=== PATIENT | female | born 1975 | race Caucasian/White ===

== ENCOUNTER 2016-12-05 08:46 | Emergency (ER) | payer OTHER ==
[~2016-12-05] VITALS: Ht 170.2 cm; Wt 90.0 kg
[~2016-12-05 08:46] MED LIST: BUTACAP2 PO; CLON1 PO; PROP10TA6 PO; TOPI100 PO; TOPI200 PO
[2016-12-05 08:53] VITALS: BP 136/82; PULSE 106; TEMP 99.3; O2SAT 98
[2016-12-05 09:01] VITALS: PULSE 99; RESP 18; O2SAT 100
--- NOTE | 2016-12-05 09:59 | PD ---
HPI Chief Complaint: Psychiatric Symptoms Time Seen by Provider: 09:21 Travel History International Travel<30 days: No Contact w/Intl Traveler<30days: No Traveled to known affect area: No History of Present Illness HPI 41-year-old woman presents emergent from complaining of feeling so a nervous breakdown. She went of increased anxiety symptoms, increasing stress, and passive wish. Denies expressed suicidal thoughts at this point. They symptoms of been building for some time. Social stressors. She is a history of bipolar disorder, ADD, and anxiety. She been Doran acted in the past. She smokes marijuana. On any psych meds. No other complaints. History Past Medical History Narrative Medical Bipolar disorder, anxiety, ADD LMP: 10/2016 : 5 Para: 3 Social History Alcohol Use: Yes (WEEKLY, 5-6 DRINKS) Tobacco Use: No Allergies-Medications (Allergen,Severity, Reaction): Coded Allergies: Sulfa (Verified Allergy, Severe, ITCH/RASH, 12/05/16) Reported Meds & Prescriptions Reported Meds & Active Scripts Active Review of Systems Except as stated in HPI: all other systems reviewed are Neg Physical Exam Narrative GENERAL: Well-appearing 41-year-old woman, no acute distress. SKIN: Focused skin assessment warm/dry. HEAD: Atraumatic. Normocephalic. EYES: Pupils equal and round. No scleral icterus. No injection or drainage. ENT: No nasal bleeding or discharge. Mucous membranes pink and moist. NECK: Trachea midline. No JVD. CARDIOVASCULAR: Regular rate and rhythm. No murmur appreciated. RESPIRATORY: No accessory muscle use. Clear to auscultation. Breath sounds equal bilaterally. GASTROINTESTINAL: Abdomen soft, non-tender, nondistended. Hepatic and splenic margins not palpable. MUSCULOSKELETAL: No obvious deformities. No clubbing. No cyanosis. No edema. NEUROLOGICAL: Awake and alert. No obvious cranial nerve deficits. Motor grossly within normal limits. Normal speech. PSYCHIATRIC: Anxious. Speech is little bit rapid. She mostly stays and past. She does perseverate about social stressors. Data Data Last Documented VS Vital Signs Date Time Temp Pulse Resp B/P Pulse Ox O2 Delivery O2 Flow Rate FiO2 12/05/16 09:01 99 18 100 12/05/16 08:53 99.3 136/82 Orders Complete Blood Count With Diff (12/05/16 09:21) Comprehensive Metabolic Panel (12/05/16 09:21) Psych Screen (12/05/16 09:21) Drug Screen, Random Urine (12/05/16 09:21) Ed Urine Pregnancytest Poc (12/05/16 09:21) Lorazepam (Ativan) (12/05/16 10:00) [facility] Medical Decision Making Medical Screen Exam Complete: Yes Emergency Medical Condition: Yes Differential Diagnosis Anxiety, stress, depression, other Narrative Course Medical decision making 40 year-old woman presents emergent department requesting psychiatric evaluation for increasing anxiety stress and depressive thoughts. No somatic complaint. Patient medically clear for psychiatric evaluation. Mental health screening discussed with the patient. Psychiatric screen ordered. Scripts No Active Prescriptions or Reported Meds Kwesi Gordon MD Dec 05, 2016 09:59
[2016-12-05] MEDS ORDERED: LORazepam 1 MG TAB PO ONE (10:00)
[2016-12-05 10:09] LABS: AUTOMATED NEUTROPHIL # 2.9 TH/MM3 (1.8-7.7); BASOPHIL # 0.1 TH/MM3 (0-0.2); EOSINOPHIL # 0.1 TH/MM3 (0-0.4); EOSINOPHIL % 2.2 % (0.0-4.0); HEMATOCRIT 41.7 % (35.0-46.0); HEMO FLAGS DIFF FINAL; LYMPHOCYTE # 1.8 TH/MM3 (1.0-4.8); MEAN CELL VOLUME 83.9 FL (80.0-100.0); MEAN CORPUSCULAR HEMOGLOBIN 28.4 PG (27.0-34.0); MEAN CORPUSCULAR HGB CONC 33.8 % (32.0-36.0); NEUT % 55.8 % (16.0-70.0); PLATELET COUNT 165 TH/MM3 (150-450); RED BLOOD COUNT 4.97 MIL/MM3 (4.00-5.30); WHITE BLOOD COUNT 5.3 TH/MM3 (4.0-11.0)
[2016-12-05 10:25] LABS: ALT (GPT) 21 U/L (10-53); ANION GAP 6 MEQ/L (5-15); AST (GOT) 11 U/L (15-37); BICARBONATE 27.1 MEQ/L (21.0-32.0); BLOOD UREA NITROGEN 8 MG/DL (7-18); CHLORIDE 105 MEQ/L (98-107); GLOMERULAR FILTRATION RATE 91 ML/MIN (>89); POTASSIUM 3.8 MEQ/L (3.5-5.1); SODIUM (NA) 138 MEQ/L (136-145)
[2016-12-05 10:27] LABS: ALKALINE PHOSPHATASE 52 U/L (45-117); TOTAL BILIRUBIN ADULT 0.6 MG/DL (0.2-1.0)
[2016-12-05 12:02] LABS: AMPHETAMINE, URINE NEG (NEG); BARBITURATES, URINE NEG (NEG); COCAINE, URINE NEG (NEG)
[2016-12-05 17:20] VITALS: BP 146/86; PULSE 82; RESP 17; TEMP 98.5; O2SAT 98
[2016-12-05] MEDS ORDERED: HYDR50TA94 PO (18:00)
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
== END 2016-12-05 19:15 | disposition home or self-care (01) ==
LOC: NEPE 08:46 → NEPJ 19:15
DX: F43.22 Adjustment disorder with anxiety (principal); F12.90 Cannabis use, unspecified, uncomplicated; Z86.59 Personal history of other mental and behavioral disorders
CPT/HCPCS: 80053; 80307; 84703; 85025; 99284